=== PATIENT | female | born 1940 | race Caucasian/White ===

== ENCOUNTER 2023-08-22 19:56 | Emergency (ER) | payer MEDICARE ==
[~2023-08-22] VITALS: Ht 165.1 cm; Wt 61.2 kg
[2023-08-22] MEDS ORDERED: ZYLOPRIM100 MG PO (20:38)
[2023-08-22] MEDS ORDERED: ELIQUIS5 M1 PO (20:39)
[2023-08-22] MEDS ORDERED: KLOR-CON M2020 ME1 PO (20:39)
[2023-08-22] MEDS ORDERED: Lopressor25 MG PO (20:39)
[2023-08-22] MEDS ORDERED: TOPCARE OMEPRAZ20 MG PO (20:40)
[2023-08-22] MEDS ORDERED: Synthroid,Levo50 MCG PO (20:40)
[2023-08-22] MEDS ORDERED: SERTRALINE HYDR50 MG PO (20:40)
[2023-08-22] MEDS ORDERED: THERA-M TABLET1 EACH PO (20:41)
[2023-08-22] MEDS ORDERED: VITAMIN D250 MC1 PO (20:42)
[2023-08-22 20:52] LABS: BILIRUBIN Negative (Negative); BLOOD Trace-Lysed (Negative); CLARITY Cloudy (Clear); COLOR Yellow (Yellow); GLUCOSE Negative (Negative); KETONE Negative (Negative); LEUKO ESTERASE 3+ (Negative); NITRITE Positive (Negative)
[2023-08-22 20:59] LABS: URINE AMPHETAMINES Negative (1000ng/ml); URINE BARBITURATES Negative (200ng/ml); URINE BENZODIAZEPINES Negative (200ng/ml); URINE CANNABINOIDS (THC) Negative (50ng/ml); URINE COCAINE Negative (300ng/ml); URINE METHADONE Negative (300ng/ml); URINE OPIATES Negative (300ng/ml); URINE PHENCYCLIDINE Negative (25ng/ml)
[2023-08-22 21:01] LABS: BASO # 0.1 10*3/uL (0.0-0.1); BASO % 0.7 % (0.0-1.0); EOS # 0.1 10*3/uL (0.0-0.4); HEMATOCRIT 29.9 % (37.0-47.0); LYMPH # 1.6 10*3/uL (1.3-4.4); MEAN CELL VOLUME 103.5 fl (81.0-99.0); MEAN CORPUSCULAR HGB 32.9 pg (27.0-31.0); MEAN CORPUSCULAR HGB CONC 31.8 g/dl (33.0-37.0); MEAN PLATELET VOLUME 9.3 fl (9.6-12.3); MONO # 0.5 10*3/uL (0.1-1.0); NEUT # 6.5 10*3/uL (2.3-7.9); PLATELET COUNT AUTOMATED 279 10*3/uL (130-400); RED BLOOD COUNT 2.89 10*6/uL (4.10-5.10); RED CELL DISTRI WIDTH 15.3 % (0-14.5); WHITE BLOOD COUNT 8.8 10*3/uL (4.8-10.8)
[2023-08-22 21:03] LABS: BACTERIA 4+; EPITHELIAL CELLS 0-2; RBC 16-20 rbc/hpf (0-2); WBC TNTC wbc/hpf (0-5)
[2023-08-22 21:26] LABS: ALKALINE PHOSPHATASE 105 U/L (46-116); BUN 27 mg/dl (9-23); CHLORIDE 103 mmol/L (98-107); ETHYL ALCOHOL 4.8 mg/dl (<3); POTASSIUM 3.6 mmol/L (3.4-5.1); SGPT/ALT < 7 U/L (5-49); TOTAL PROTEIN 7.8 gm/dL (6.0-8.0)
== END 2023-08-22 23:30 ==
LOC: ED 19:56
PROVIDERS: Emergency Medicine
DX: F28 Other psychotic disorder not due to a substance or known physiological condition (principal); N39.0 Urinary tract infection, site not specified; B95.2 Enterococcus as the cause of diseases classified elsewhere; Z88.2 Allergy status to sulfonamides; Z88.1 Allergy status to other antibiotic agents; Z88.8 Allergy status to other drugs, medicaments and biological substances; Z79.899 Other long term (current) drug therapy; Z20.822 Contact with and (suspected) exposure to COVID-19

== ENCOUNTER 2023-10-11 14:49 | Emergency (ER) | payer MEDICARE, MEDICAID ==
[~2023-10-11] VITALS: Ht 157.4 cm; Wt 77.1 kg
[~2023-10-11 14:49] MED LIST: ELIQUIS5 M1 PO; KLOR-CON M2020 ME1 PO; Lopressor25 MG PO; MIRTAZAPINE15 M2 PO; NAMENDA-5 PO; RISPERIDONE0.5 MG PO; RIVASTIGMINE1 EAC2 T; SERTRALINE HYDR50 MG PO; Synthroid,Levo50 MCG PO; THERA-M TABLET1 EACH PO; TOPCARE OMEPRAZ20 MG PO; VITAMIN D250 MC1 PO; ZYLOPRIM100 MG PO
[2023-10-11 15:37] LABS: BASO % 0.5 % (0.0-1.0); EOS # 0.1 10*3/uL (0.0-0.4); EOS % 1.8 % (1.0-4.0); HEMATOCRIT 29.3 % (37.0-47.0); LYMPH # 1.2 10*3/uL (1.3-4.4); LYMPH % 20.7 % (27.0-41.0); MEAN CELL VOLUME 92.4 fl (81.0-99.0); MEAN CORPUSCULAR HGB 25.2 pg (27.0-31.0); MEAN CORPUSCULAR HGB CONC 27.3 g/dl (33.0-37.0); MEAN PLATELET VOLUME 10.7 fl (9.6-12.3); MONO # 0.5 10*3/uL (0.1-1.0); MONO % 9.4 % (3.0-9.0); NEUT # 3.8 10*3/uL (2.3-7.9); NEUT % 67.2 % (47.0-73.0); PLATELET COUNT AUTOMATED 252 10*3/uL (130-400); RED BLOOD COUNT 3.17 10*6/uL (4.10-5.10); RED CELL DISTRI WIDTH 18.6 % (0-14.5); WHITE BLOOD COUNT 5.7 10*3/uL (4.8-10.8)
[2023-10-11 16:18] LABS: ALKALINE PHOSPHATASE 111 U/L (46-116); BUN 17 mg/dl (9-23); CHLORIDE 103 mmol/L (98-107); TOTAL PROTEIN 7.5 gm/dL (6.0-8.0)
[2023-10-11 16:19] LABS: CPK < 15 U/L (34-171); ETHYL ALCOHOL < 3.0 mg/dl (<3); SGPT/ALT < 7 U/L (5-49)
[2023-10-11 16:35] LABS: BILIRUBIN Negative (Negative); BLOOD Negative (Negative); CLARITY Cloudy (Clear); COLOR Yellow (Yellow); GLUCOSE Negative (Negative); KETONE Negative (Negative); LEUKO ESTERASE 2+ (Negative); NITRITE Positive (Negative)
[2023-10-11 16:42] LABS: URINE AMPHETAMINES Negative (1000ng/ml); URINE BARBITURATES Negative (200ng/ml); URINE BENZODIAZEPINES Negative (200ng/ml); URINE CANNABINOIDS (THC) Negative (50ng/ml); URINE COCAINE Negative (300ng/ml); URINE METHADONE Negative (300ng/ml); URINE OPIATES Negative (300ng/ml); URINE PHENCYCLIDINE Negative (25ng/ml)
[2023-10-11] MEDS ORDERED: VITAMIN D350 MCG PO (16:42)
[2023-10-11] MEDS ORDERED: RISPERDAL0.5 MG PO (16:43)
[2023-10-11 16:51] LABS: BACTERIA 4+; WBC 51-100 wbc/hpf (0-5)
[2023-10-11] MEDS ORDERED: Fosfomycin Tromethamine 3 GM PDS PO ONE (17:00)
== END 2023-10-11 17:27 | disposition admitted as inpatient to this hospital (09) ==
LOC: ED 14:49
PROVIDERS: Nurse Practitioner Family
DX: N39.0 Urinary tract infection, site not specified (principal); Z20.822 Contact with and (suspected) exposure to COVID-19; F39 Unspecified mood [affective] disorder; E87.1 Hypo-osmolality and hyponatremia; K21.9 Gastro-esophageal reflux disease without esophagitis; F03.90 Unspecified dementia, unspecified severity, without behavioral disturbance, psychotic disturbance, mood disturbance, and anxiety; M10.9 Gout, unspecified; E03.9 Hypothyroidism, unspecified; I48.91 Unspecified atrial fibrillation; D64.9 Anemia, unspecified; E87.6 Hypokalemia; I12.9 Hypertensive chronic kidney disease with stage 1 through stage 4 chronic kidney disease, or unspecified chronic kidney disease; N18.30 Chronic kidney disease, stage 3 unspecified; Z88.2 Allergy status to sulfonamides; Z88.1 Allergy status to other antibiotic agents; Z88.8 Allergy status to other drugs, medicaments and biological substances; Z98.890 Other specified postprocedural states; Z79.899 Other long term (current) drug therapy

== ENCOUNTER 2023-10-11 15:09 | Inpatient (IN) | payer MEDICARE, MEDICAID ==
[~2023-10-11] VITALS: Wt 62.6 kg
[2023-10-11] MEDS ORDERED: VITAMIN D350 MCG PO (16:42)
[2023-10-11] MEDS ORDERED: RISPERDAL0.5 MG PO (16:43)
[2023-10-11] MEDS ORDERED: LORazepam 1 MG TAB PO PRN (16:50)
[2023-10-11] MEDS ORDERED: Ziprasidone Mesylate 20 MG VIAL IM PRN (16:55)
[2023-10-11] MEDS ORDERED: Water, Sterile 10 ML VIAL IM PRN (17:00)
[2023-10-11 17:40] VITALS: BP 135/81
[2023-10-11] MEDS ORDERED: MG-AL HYDROXIDE/SIMETICONE 30 ML UDC PO PRN (18:25)
[2023-10-11] MEDS ORDERED: Magnesium Hydroxide 30 ML UDC PO PRN (18:25)
[2023-10-11] MEDS ORDERED: ACETAMINOPHEN 325 MG TAB PO PRN (18:25)
[2023-10-11 20:00] VITALS: BP 120/59
[2023-10-11] MEDS ORDERED: RISPERIDONE 0.5 MG TAB PO SCH (21:00)
[2023-10-11] MEDS ORDERED: Memantine Hydrochloride 5 MG TAB PO SCH (21:00)
[2023-10-11] MEDS ORDERED: Menthol/Zinc Oxide 4 GM THIN T SCH (21:00)
[2023-10-11] MEDS ORDERED: Mirtazapine 15 MG TAB PO SCH (21:00)
[2023-10-12 07:39] VITALS: BP 115/69
[2023-10-12] MEDS ORDERED: RIVASTIGMINE 13.3 MG/24 HR TDM T SCH (09:00)
[2023-10-12 10:38] LABS: VITAMIN D, 25-HYDROXY 81.2 ng/mL (30-100)
[2023-10-12 20:00] VITALS: BP 121/87
[2023-10-12] MEDS ORDERED: APIXABAN 5 MG TAB PO SCH (21:00)
[2023-10-12] MEDS ORDERED: Metoprolol Tartrate 25 MG TAB PO SCH (21:00)
[2023-10-13 01:06] LABS: HEMOGOLBIN A1C 5.6 % (4.8-5.6)
[2023-10-13] MEDS ORDERED: Levothyroxine Sodium 50 MCG TAB PO SCH (06:00)
[2023-10-13] MEDS ORDERED: OMEPRAZOLE 20 MG CAP PO SCH (06:00)
[2023-10-13 07:19] LABS: BASO % 0.4 % (0.0-1.0); EOS # 0.1 10*3/uL (0.0-0.4); EOS % 1.7 % (1.0-4.0); HEMATOCRIT 25.2 % (37.0-47.0); LYMPH # 0.9 10*3/uL (1.3-4.4); LYMPH % 16.5 % (27.0-41.0); MEAN CELL VOLUME 90.3 fl (81.0-99.0); MEAN CORPUSCULAR HGB 25.8 pg (27.0-31.0); MEAN CORPUSCULAR HGB CONC 28.6 g/dl (33.0-37.0); MEAN PLATELET VOLUME 10.3 fl (9.6-12.3); MONO # 0.4 10*3/uL (0.1-1.0); MONO % 8.3 % (3.0-9.0); NEUT # 3.8 10*3/uL (2.3-7.9); NEUT % 72.7 % (47.0-73.0); PLATELET COUNT AUTOMATED 199 10*3/uL (130-400); RED BLOOD COUNT 2.79 10*6/uL (4.10-5.10); RED CELL DISTRI WIDTH 19.2 % (0-14.5); WHITE BLOOD COUNT 5.3 10*3/uL (4.8-10.8)
[2023-10-13 07:38] LABS: BUN 19 mg/dl (9-23); CHLORIDE 102 mmol/L (98-107); POTASSIUM 4.4 mmol/L (3.4-5.1)
[2023-10-13 07:53] VITALS: BP 109/59
[2023-10-13] MEDS ORDERED: ALLOPURINOL 100 MG TAB PO SCH (09:00)
[2023-10-13] MEDS ORDERED: POTASSIUM CHLORIDE 20 MEQ TAB PO SCH (09:00)
[2023-10-13] MEDS ORDERED: Menthol/Zinc Oxide 4 GM THIN T PRN (09:27)
[2023-10-13] MEDS ORDERED: RISPERIDONE 0.5 MG TAB PO SCH (13:00)
[2023-10-13 20:00] VITALS: BP 106/58
[2023-10-13] MEDS ORDERED: Memantine Hydrochloride 10 MG TAB PO SCH (21:00)
[2023-10-14 07:05] LABS: BASO % 0.6 % (0.0-1.0); EOS # 0.1 10*3/uL (0.0-0.4); EOS % 2.3 % (1.0-4.0); HEMATOCRIT 25.5 % (37.0-47.0); LYMPH # 1.2 10*3/uL (1.3-4.4); LYMPH % 24.7 % (27.0-41.0); MEAN CELL VOLUME 89.2 fl (81.0-99.0); MEAN CORPUSCULAR HGB 25.2 pg (27.0-31.0); MEAN CORPUSCULAR HGB CONC 28.2 g/dl (33.0-37.0); MEAN PLATELET VOLUME 10.1 fl (9.6-12.3); MONO # 0.5 10*3/uL (0.1-1.0); MONO % 10.3 % (3.0-9.0); NEUT # 2.9 10*3/uL (2.3-7.9); NEUT % 61.9 % (47.0-73.0); PLATELET COUNT AUTOMATED 218 10*3/uL (130-400); RED BLOOD COUNT 2.86 10*6/uL (4.10-5.10); RED CELL DISTRI WIDTH 19.4 % (0-14.5); WHITE BLOOD COUNT 4.7 10*3/uL (4.8-10.8)
[2023-10-14] MEDS ORDERED: FERROUS SULFATE 325 MG TAB PO SCH ×2 (09:00→10:00)
[2023-10-14] MEDS ORDERED: Memantine Hydrochloride 5 MG TAB PO SCH (09:00)
[2023-10-14 09:06] VITALS: BP 134/76
[2023-10-14 20:00] VITALS: BP 116/57
[2023-10-15 06:33] LABS: BASO % 0.6 % (0.0-1.0); EOS # 0.1 10*3/uL (0.0-0.4); EOS % 2.6 % (1.0-4.0); HEMATOCRIT 27.8 % (37.0-47.0); LYMPH # 1.1 10*3/uL (1.3-4.4); LYMPH % 21.5 % (27.0-41.0); MEAN CELL VOLUME 88.8 fl (81.0-99.0); MEAN CORPUSCULAR HGB 24.9 pg (27.0-31.0); MEAN CORPUSCULAR HGB CONC 28.1 g/dl (33.0-37.0); MEAN PLATELET VOLUME 10.3 fl (9.6-12.3); MONO # 0.5 10*3/uL (0.1-1.0); MONO % 10.8 % (3.0-9.0); NEUT # 3.2 10*3/uL (2.3-7.9); NEUT % 64.1 % (47.0-73.0); PLATELET COUNT AUTOMATED 231 10*3/uL (130-400); RED BLOOD COUNT 3.13 10*6/uL (4.10-5.10); RED CELL DISTRI WIDTH 19.6 % (0-14.5); WHITE BLOOD COUNT 4.9 10*3/uL (4.8-10.8)
[2023-10-15 07:02] LABS: ALKALINE PHOSPHATASE 94 U/L (46-116); BUN 23 mg/dl (9-23); CHLORIDE 102 mmol/L (98-107); POTASSIUM 4.6 mmol/L (3.4-5.1); TOTAL PROTEIN 7.3 gm/dL (6.0-8.0)
[2023-10-15 07:06] LABS: SGPT/ALT < 7 U/L (5-49)
[2023-10-15 07:30] VITALS: BP 98/72
[2023-10-15] MEDS ORDERED: Memantine Hydrochloride 10 MG TAB PO SCH (09:00)
[2023-10-15] MEDS ORDERED: RISPERIDONE 0.5 MG TAB PO SCH (09:45)
[2023-10-15 20:00] VITALS: BP 132/80
[2023-10-15] MEDS ORDERED: RISPERIDONE 1 MG TAB PO SCH (21:00)
[2023-10-16 08:52] VITALS: BP 111/47
[2023-10-16] MEDS ORDERED: Memantine Hydrochloride 10 MG TAB PO SCH (09:46)
[2023-10-16 20:00] VITALS: BP 107/58
[2023-10-17] MEDS ORDERED: RISPERIDONE0.5 MG PO (07:13)
[2023-10-17] MEDS ORDERED: MEMANTINE HCL10 MG PO (07:13)
[2023-10-17] MEDS ORDERED: RISPERDAL1 M1 PO (07:13)
[2023-10-17 08:15] VITALS: BP 126/75
[2023-10-17] MEDS ORDERED: LIDOCAINE 1 EA PATCH T SCH (09:00)
== END 2023-10-17 12:56 | DRG 883 ==
LOC: 3N 15:09
PROVIDERS: Nurse Practitioner Women's Health; Registered Nurse; Student in an Organized Health Care Education/Training Program; ADMIT Psychiatry & Neurology Psychiatry; ATTEND Psychiatry & Neurology Psychiatry
DX: F63.81 Intermittent explosive disorder (principal); F41.9 Anxiety disorder, unspecified; I48.91 Unspecified atrial fibrillation; M10.9 Gout, unspecified; F03.90 Unspecified dementia, unspecified severity, without behavioral disturbance, psychotic disturbance, mood disturbance, and anxiety; E03.9 Hypothyroidism, unspecified; I73.9 Peripheral vascular disease, unspecified; K21.9 Gastro-esophageal reflux disease without esophagitis; Z88.2 Allergy status to sulfonamides; Z88.1 Allergy status to other antibiotic agents; Z88.8 Allergy status to other drugs, medicaments and biological substances